=== PATIENT | male | born 1965 | race Caucasian/White ===

== ENCOUNTER 2018-02-11 13:16 | Emergency (ER) | payer SELFPAY ==
[2018-02-11] MEDS ORDERED: HYDROmorphone 0.5 MG/0.5 ML SYRINGE IVPUSH STA (14:11)
[2018-02-11] MEDS: Ondansetron 4 MG/2 ML SDV IVPUSH ONE (14:34)
[2018-02-11] MEDS: Sodium Chloride 0.9% 1,000 ML IV SCH (14:37)
[2018-02-11] MEDS: Iopamidol 612 MG/ML 150 ML Bottle IVPUSH ONE (15:25)
[2018-02-11] MEDS: Sodium Chloride 0.9% 10 ML Syringe FLUSH PRN (15:25)
[2018-02-11] MEDS: Diatrizoate Meglumine/Diatrizoate Sodium 37% 120 ML Bottle PO ONE (15:25)
--- NOTE | 2018-02-11 15:57 | CT ---
CT abdomen and pelvis Technique: Multiple axial sections were obtained from above the dome of the diaphragm inferiorly through the pubic symphysis. Small amount of oral contrast is seen which remains within the proximal small bowel. IV contrast was utilized. Delayed images were obtained through the bladder. Comparison: No prior abdominal imaging. Findings: Small calcified granulomas are partially visualized within both lung bases. 3 calcified granulomas are seen within the spleen. Small scattered low density lesions are noted within the liver which are too small to characterize by Hounsfield unit measurements but most likely represent minimal cysts. Gallbladder contains no calcified gallstones. Adrenal glands show no nodule. Pancreas is within normal limits. Several small cysts are believed to be present within both kidneys. Aorta shows no aneurysmal dilatation. Mild atherosclerotic calcification is seen within the aorta. No retroperitoneal adenopathy is seen. No mesenteric abnormalities are seen. No pelvic mass or adenopathy is seen. Calcifications are noted within the prostate gland. Mildly dilated loops of small bowel are seen containing fluid. There is also a fair amount of fluid within the colon. Appendix is felt to be visualized and contains 1 or 2 appendicoliths. Appendix is slightly prominent in size at 9 mm. Bone window settings were reviewed which appear within normal limits for the patient's age. Delayed images shows contrast within the bladder. Impression: 1. Mildly dilated fluid-filled loops of small bowel as well as fluid within the colon. Gastroenteritis or ileus is a possibility. 2. Appendix is felt to be visualized and contains 1 or 2 appendicoliths. Appendix is mildly prominent at 9 mm. Difficult to exclude very early appendicitis if patient has correlating symptoms. 3. Other incidental findings as noted above. Diagnostic code #5
--- NOTE | 2018-02-11 15:58 | EDM.PDOC ---
ED HPI GENERAL MEDICAL PROBLEM - General Chief Complaint: Abdominal Pain Stated Complaint: ABDOMINAL PAIN Time Seen by Provider: 02/11/18 13:27 Source of Information: Reports: Patient History Limitations: Reports: No Limitations - History of Present Illness INITIAL COMMENTS - FREE TEXT/NARRATIVE: The patient states that he developed suprapubic pain, diaphoresis, nausea, and emesis around 21:00 Friday night, 02/09/2018. He states that the pain was felt all over his abdomen, and worse in severity the following morning, 02/10/2018. He did not, however, have any nausea, emesis or diaphoresis. At no time has he had fever, chills, constipation, diarrhea, or urinary symptoms. He states that his pain is somewhat less severe today. He describes it as a stinging/sharp pain. It waxes and wanes. It improves with Tylenol, otherwise, he has not identified any modifiers. The patient states that he had similar symptoms in the past due to gas, although his symptoms were not as severe. His last bowel movement was yesterday morning, 02/10/2018. He has had a small amount of flatus today. His last oral solid intake was around 18:00 last night. The patient states that he drank some coconut oil this morning, which did not help his symptoms. The patient was seen at the [facility] in [place] today. A CBC found his WBC count to be elevated at 22.7. He was instructed to come to the ED for further evaluation. The patient does not have a PCP. Abdominal Pain Score (Numeric/FACES): 8 - Related Data Allergies Allergy/AdvReac Type Severity Reaction Status Date / Time No Known Allergies Allergy Verified 02/11/18 13:22 Home Meds: Home Meds Dicyclomine [Bentyl] 20 mg PO Q6H PRN #12 tablet 02/11/18 [Rx] Past Medical History - Past Surgical History HEENT Surgical History: Reports: Oral Surgery ([place] teeth extraction) Social & Family History - Tobacco Use Smoking Status *Q: Current Every Day Smoker Years of Tobacco use: 33 Packs/Tins Daily: 0.5 Packs/Tins Daily Comment: Down from 1 ppd - Alcohol Use Alcohol Use History: Yes Alcohol Use Frequency: Socially - Recreational Drug Use Recreational Drug Use: No - Living Situation & Occupation Living situation: Reports: , with Spouse 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 ED EXAM, GI/ABD - Physical Exam Exam: See Below Exam Limited By: No Limitations General Appearance: Alert, WD/WN, No Apparent Distress Eyes: Bilateral: Normal Appearance, EOMI Ears: Normal External Exam, Hearing Grossly Normal Nose: Normal Inspection, No Blood Throat/Mouth: Normal Inspection, Normal Lips, Normal Voice, No Airway Compromise Head: Atraumatic, Normocephalic Neck: Normal Inspection, Full Range of Motion Respiratory/Chest: No Respiratory Distress, Lungs Clear, Normal Breath Sounds, No Accessory Muscle Use Cardiovascular: Normal Peripheral Pulses, Regular Rate, Rhythm, No Edema, No Gallop, No JVD, No Murmur, No Rub GI/Abdominal Exam: Normal Bowel Sounds, Soft, No Organomegaly, No Distention, No Abnormal Bruit, No Mass, Tender (Moderate to severe, generalized, non-focal) Rectal (Males) Exam: Deferred Back Exam: Normal Inspection, Full Range of Motion. No: CVA Tenderness (L), CVA Tenderness (R) Extremities: Normal Inspection, Normal Range of Motion, No Pedal Edema, Normal Capillary Refill Neurological: Alert, Oriented, Normal Cognition, No Motor/Sensory Deficits Psychiatric: Normal Affect Skin Exam: Warm, Dry, Intact, Normal Color, No Rash Course - Vital Signs Last Recorded V/S: Last Vital Signs Temp 38.0 C 02/11/18 13:22 Pulse 98 02/11/18 13:22 Resp 18 02/11/18 13:22 BP 138/86 02/11/18 13:22 Pulse Ox 96 02/11/18 13:22 - Orders/Labs/Meds Orders: Active Orders 24 hr Category Date Time Status UA W/MICROSCOPIC [URIN] Stat Lab 02/11/18 15:50 Ordered Sodium Chloride 0.9% [Normal Saline] 1,000 ml Med 02/11/18 14:15 Active IV ASDIRECTED Sodium Chloride 0.9% [Saline Flush] Med 02/11/18 14:18 Active 10 ml FLUSH ONETIME PRN Medication Orders Sodium Chloride (Normal Saline) 1,000 mls @ 150 mls/hr IV ASDIRECTED ELVIS Last Admin: 02/11/18 14:37 Dose: 150 mls/hr Sodium Chloride (Saline Flush) 10 ml FLUSH ONETIME PRN PRN Reason: IV FLUSH Last Admin: 02/11/18 15:25 Dose: 10 ml Labs: Laboratory Tests 02/11/18 02/11/18 02/11/18 Range/Units 14:15 14:15 15:50 WBC 22.44 H (4.23-9.07) K/mm3 RBC 4.54 L (4.63-6.08) M/mm3 Hgb 15.3 (13.7-17.5) gm/L Hct 43.6 (40.1-51.0) % MCV 96.0 H (79.0-92.2) fl MCH 33.7 H (25.7-32.2) pg MCHC 35.1 (32.2-35.5) g/dl RDW Std Deviation 48.9 H (35.1-43.9) fL Plt Count 238 (163-337) K/mm3 MPV 10.5 (9.4-12.3) fl Neutrophils % (Manual) 80 H (40-60) % Band Neutrophils % 0 (0-10) % Lymphocytes % (Manual) 16 L (20-40) % Atypical Lymphs % 0 % Monocytes % (Manual) 3 (2-10) % Eosinophils % (Manual) 1 (0.8-7.0) % Basophils % (Manual) 0 L (0.2-1.2) Platelet Estimate Adequate RBC Morph Comment Normal Sodium 133 L (136-145) mEq/L Potassium 3.7 (3.5-5.1) mEq/L Chloride 95 L (98-107) mEq/L Carbon Dioxide 26 (21-32) mEq/L Anion Gap 15.7 H (5-15) BUN 22 H (7-18) mg/dL Creatinine 1.1 (0.7-1.3) mg/dL Est Cr Clr Drug Dosing 69.28 mL/min Estimated GFR (MDRD) > 60 (>60) mL/min BUN/Creatinine Ratio 20.0 H (14-18) Glucose 105 (74-106) mg/dL Calcium 9.7 (8.5-10.1) mg/dL Total Bilirubin 0.7 (0.2-1.0) mg/dL AST 18 (15-37) U/L ALT 24 (16-63) U/L Alkaline Phosphatase 58 (46-116) U/L Total Protein 7.9 (6.4-8.2) g/dl Albumin 3.6 (3.4-5.0) g/dl Globulin 4.3 gm/dL Albumin/Globulin Ratio 0.8 L (1-2) Lipase 73 (73-393) U/L Urine Color Yellow (Yellow) Urine Appearance Clear (Clear) Urine pH 6.0 (5.0-8.0) Ur Specific [place] 1.020 (1.005-1.030) Urine Protein 3+ H (Negative) Urine Glucose (UA) Negative (Negative) Urine Ketones 2+ H (Negative) Urine Occult Blood 3+ H (Negative) Urine Nitrite Negative (Negative) Urine Bilirubin 1+ H (Negative) Urine Urobilinogen 0.2 (0.2-1.0) Ur Leukocyte Esterase Negative (Negative) Urine RBC 10-20 H (0-5) /hpf Urine WBC 0-5 (0-5) /hpf Ur Epithelial Cells 0-5 (0-5) /hpf Urine Bacteria Few (FEW) /hpf Hyaline Casts 0-5 (0-5) /lpf Urine Mucus Few (FEW) /hpf Meds: Medications Generic Name Dose Route Start Last Admin Trade Name Freq PRN Reason Stop Dose Admin Sodium Chloride 1,000 mls @ 150 mls/hr 02/11/18 14:15 02/11/18 14:37 Normal Saline IV 150 mls/hr ASDIRECTED ELVIS Administration Sodium Chloride 10 ml 02/11/18 14:18 02/11/18 15:25 Saline Flush FLUSH 10 ml ONETIME PRN Administration IV FLUSH Discontinued Medications Generic Name Dose Route Start Last Admin Trade Name Freq PRN Reason Stop Dose Admin Diatrizoate Meglum/Diatrizoate Sod 120 ml 02/11/18 14:18 02/11/18 15:25 Gastrografin 37% PO 02/11/18 14:19 90 ml ONETIME ONE Administration Dicyclomine HCl 20 mg 02/11/18 16:58 Bentyl PO 02/11/18 16:59 ONETIME STA Hydromorphone HCl 1 mg 02/11/18 14:11 Dilaudid IVPUSH 02/11/18 14:12 ONETIME STA Iopamidol 150 ml 02/11/18 14:18 02/11/18 15:25 Isovue-300 (61%) IVPUSH 02/11/18 14:19 100 ml ONETIME ONE Administration Ondansetron HCl 4 mg 02/11/18 14:10 02/11/18 14:34 Zofran IVPUSH 02/11/18 14:11 4 mg ONETIME ONE Administration - Re-Assessments/Exams Free Text/Narrative Re-Assessment/Exam: 02/11/18 15:59 CT of the abdomen and pelvis with oral and IV contrast is read by Dr. Syed as: 1. Mildly dilated fluid-filled loops of small bowel as well as fluid within the colon. Gastroenteritis or ileus is a possibility. 2. Appendix is felt to be visualized and contains 1 or 2 appendicoliths. Appendix is mildly prominent at 9 mm. Difficult to exclude very early appendicitis if patient has correlating symptoms. 3. Other incidental findings as noted above. 02/11/18 16:58 Test results discussed with the patient. The patient is still having considerable abdominal cramps. I offered to place him into observation for pain control and, perhaps, to have the surgeon evaluate him, however, the patient would prefer to go home. I will give the patient 20 g oral Bentyl prior to discharge, and e-prescribe additional. The patient can then follow-up with Dr. Jones. I asked the patient to return if his symptoms worsen, but that if he does , it is with the understanding that he would be admitted. Departure - Departure Time of Disposition: 17:00 Disposition: Home, Self-Care 01 Condition: Fair Clinical Impression: Generalized abdominal pain of unknown etiology, Leukocytosis - Discharge Information Prescriptions: Dicyclomine [Bentyl] 20 mg PO Q6H PRN #12 tablet PRN Reason: Cramping Referrals: PCP,None [Primary Care Provider] - Adriana Jones MD [Physician] - Forms: ED Department Discharge Additional Instructions: You were seen in the emergency room for generalized abdominal pain. Workup in the ER included blood work, a urinalysis, and a CT scan of your abdomen and pelvis. Your white blood cell count was found to be elevated, otherwise, your workup was unremarkable, and did not explain the cause of your pain. An offer to place you into observation was made, but declined. You have been started on the anti-spasm medicine Bentyl. A prescription for Bentyl has been sent to the [facility], located in the [facility] grocery store. Take one tablet up to every 6 hours, as needed for abdominal cramps. Stay well hydrated. We would prefer that you drink a liquid diet, but if you are hungry for solid food, make it bland food, such as rice. If your symptoms persist, please follow-up with Dr. Jones in the Clinic. If your symptoms worsen, please return to the ER, with the expectation that you will be admitted. - My Orders Last 24 Hours: My Active Orders 02/11/18 14:15 Sodium Chloride 0.9% [Normal Saline] 1,000 ml IV ASDIRECTED 02/11/18 14:18 Sodium Chloride 0.9% [Saline Flush] 10 ml FLUSH ONETIME PRN 02/11/18 15:50 UA W/MICROSCOPIC [URIN] Stat - Assessment/Plan Last 24 Hours: My Active Orders 02/11/18 14:15 Sodium Chloride 0.9% [Normal Saline] 1,000 ml IV ASDIRECTED 02/11/18 14:18 Sodium Chloride 0.9% [Saline Flush] 10 ml FLUSH ONETIME PRN 02/11/18 15:50 UA W/MICROSCOPIC [URIN] Stat
[2018-02-11] MEDS: Dicyclomine 10 MG Cap PO STA (17:15)
== END 2018-02-11 17:20 | disposition home or self-care (01) ==
LOC: JD.ED 13:16
DX: R10.84 Generalized abdominal pain (principal); D72.829 Elevated white blood cell count, unspecified; F17.210 Nicotine dependence, cigarettes, uncomplicated
CPT/HCPCS: 36415; 74177; 80053; 81001; 83690; 85007; 85027; 96361; 96374; 99284; A9270; J2405; J7040; J7050; Q9963; Q9967